=== PATIENT | female | born 1990 | race Caucasian/White ===

== ENCOUNTER → 2022-06-03 09:40 | Outpatient (BNVA) | payer MEDICAID, SELFPAY | PROVIDERS: PCP Nurse Practitioner Family; Visit Provider Specialist | DX: R41.3 Other amnesia (principal); G43.711 Chronic migraine without aura, intractable, with status migrainosus; G80.9 Cerebral palsy, unspecified; H54.40 Blindness, one eye, unspecified eye; R56.9 Unspecified convulsions | CPT/HCPCS: 99204; 99205 ==

== ENCOUNTER → 2022-06-20 10:19 | Outpatient (BNVA) | payer MEDICAID, SELFPAY | PROVIDERS: PCP Nurse Practitioner Family; Referring Provider Specialist; Visit Provider Specialist | DX: R56.9 Unspecified convulsions (principal) | CPT/HCPCS: 95812; 95816 ==

== ENCOUNTER → 2022-12-09 08:12 | Outpatient (BNVA) | payer MEDICAID, SELFPAY | PROVIDERS: PCP Nurse Practitioner Family; Visit Provider Specialist | DX: R41.89 Other symptoms and signs involving cognitive functions and awareness (principal); G43.711 Chronic migraine without aura, intractable, with status migrainosus; G80.9 Cerebral palsy, unspecified; H54.40 Blindness, one eye, unspecified eye | CPT/HCPCS: 99213 ==

== ENCOUNTER → 2023-01-06 13:10 | Outpatient (BNVA) | payer MEDICAID, SELFPAY | PROVIDERS: PCP Nurse Practitioner Family; Visit Provider Specialist | DX: R56.9 Unspecified convulsions (principal); R41.3 Other amnesia; G80.9 Cerebral palsy, unspecified; H54.40 Blindness, one eye, unspecified eye; G47.10 Hypersomnia, unspecified; R20.2 Paresthesia of skin | CPT/HCPCS: 99215 ==

== ENCOUNTER → 2023-03-11 08:00 | Outpatient (BNVA) | payer MEDICAID, SELFPAY | PROVIDERS: PCP Nurse Practitioner Family; Referring Provider Specialist; Visit Provider Specialist | DX: R56.9 Unspecified convulsions (principal); R55 Syncope and collapse | CPT/HCPCS: 95812; 95816 ==

== ENCOUNTER → 2023-04-08 14:11 | Outpatient (BNVA) | payer MEDICAID, SELFPAY | PROVIDERS: PCP Nurse Practitioner Family; Visit Provider Specialist | DX: R41.3 Other amnesia (principal); G43.711 Chronic migraine without aura, intractable, with status migrainosus; G80.9 Cerebral palsy, unspecified; R56.9 Unspecified convulsions; G47.10 Hypersomnia, unspecified | CPT/HCPCS: 99214 ==

== ENCOUNTER 2023-09-11 08:23 | Outpatient (CLI) | payer MEDICAID, SELFPAY ==
--- NOTE | 2023-09-11 08:45 | MR_ITS ---
WS: [id number] MRA ANGIOGRAPHY [place] HISTORY: R56.9 - Unspecified convulsions COMPARISON: None available. TECHNIQUE: 3-D MR angiography is performed of the [place]. All images are reviewed including source images. Distal vertebral and basilar arteries are intact with no significant stenosis or plaque. Posterior ce rebral arteries are normal course and caliber. Posterior communicating arteries are both patent. Intracranial portion of the internal carotid arteries are normal course and caliber. No significant a therosclerosis, stenosis or aneurysm identified. Middle and anterior cerebral arteries are both paten t with no significant disease. Slight paucity of vessels in the distal LEFT MCA territory. Anterior c ommunicating artery is also normal. IMPRESSION: 1. No occlusions or aneurysm within the [place]. 2. Slight paucity of vessels in the distal LEFT MCA territory.
--- NOTE | 2023-09-11 09:00 | MR_ITS ---
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 TECHNIQUE: Multiplanar imaging performed through the brain with MultiHance 13 ml's IV. Remote cortical infarcts are noted with volume loss in the posterior occipital lobes, LEFT slightly l arger than the RIGHT. There is an additional cortical infarct with volume loss LEFT frontal lobe christelle ex. Overall there is mild volume loss throughout the LEFT cerebrum. There is very slight ex vacuo dil atation of the LEFT lateral ventricle due to the volume loss. No susceptibility artifacts or prior lacunar infarcts. Ventricles and extra-axial spaces are normal. Clivus and pituitary gland are normal. Normal cerebellum. Postcontrast images are negative for masses or vascular malformations. Dural venous sinuses are normal. Paranasal sinuses: Mild mucoperiosteal thickening in the maxillary sinuses. Mastoid air cells: Normal. Calvarium and scalp: Normal. IMPRESSION: 1. No acute infarct or hemorrhage. 2. Mild global volume loss involving the LEFT cerebrum. May be developmental or from remote trauma. 3. 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 Mild volume loss and gliosis. Consider posttraumatic or remote ischemic etiology.
[2023-09-11] MEDS: gadobenate dimeglumine 20 mL vial IV (09:40)
== END 2023-09-11 08:24 | disposition home or self-care (01) ==
LOC: RAD 08:23
PROVIDERS: PCP Nurse Practitioner Family; Visit Provider Specialist
DX: R56.9 Unspecified convulsions (principal); G43.711 Chronic migraine without aura, intractable, with status migrainosus; G80.9 Cerebral palsy, unspecified; H54.40 Blindness, one eye, unspecified eye; Z86.73 Personal history of transient ischemic attack (TIA), and cerebral infarction without residual deficits
CPT/HCPCS: 70544; 70553; A9577